=== PATIENT | female | born 1970 | race Two or more races ===

== ENCOUNTER 2019-01-02 11:21 | Outpatient (CLI) | payer OTHER | END 2019-01-02 11:33 | disposition home or self-care (01) | LOC: SONOGRAMA 11:21 | DX: E04.1 Nontoxic single thyroid nodule (principal) ==

== ENCOUNTER 2020-06-10 08:08 | Outpatient (CLI) | payer OTHER | END 2020-06-10 08:13 | disposition home or self-care (01) | LOC: SONOGRAMA 08:08 | PROVIDERS: ATTEND Pathology Anatomic Pathology & Clinical Pathology | DX: R59.0 Localized enlarged lymph nodes (principal) ==